=== PATIENT | male | born 1945 | race Caucasian/White ===

== ENCOUNTER → 2017-10-12 | Outpatient (CLI) | payer MEDICARE, OTHER | END | disposition home or self-care (01) | LOC: HKI 14:00 | DX: Z09 Encounter for follow-up examination after completed treatment for conditions other than malignant neoplasm (principal); Z96.642 Presence of left artificial hip joint | CPT/HCPCS: 73502 ==

== ENCOUNTER → 2017-10-20 | Outpatient (CLI) | payer MEDICARE, OTHER | END | disposition home or self-care (01) | LOC: HKI 14:19 | DX: Z47.1 Aftercare following joint replacement surgery (principal); Z96.642 Presence of left artificial hip joint ==

== ENCOUNTER → 2017-10-23 | Outpatient (CLI) | payer MEDICARE, OTHER | END | disposition home or self-care (01) | LOC: HKI 15:03 | DX: Z48.817 Encounter for surgical aftercare following surgery on the skin and subcutaneous tissue (principal) ==

== ENCOUNTER 2017-10-25 08:20 | Inpatient (IN) | payer MEDICARE, OTHER ==
[~2017-10-25 08:20] MED LIST: LIDOCAINE 100 MG SYRINGE
[2017-10-25 09:30] LABS: ADD MAN DIFF? NO
[2017-10-25 09:38] LABS: WHITE BLOOD COUNT 4.4 10^3/ul (4.8-10.8)
[2017-10-25 09:38] LABS: BASOPHILS % 0.9 % (0.0-2.0); EOSINOPHILS # 0.2 10^3/ul (0.0-0.5); EOSINOPHILS % 4.1 % (0.0-7.0); HEMATOCRIT 28.7 % (42.0-52.0); HOLD TRANSMISSIONS 1; LYMPHOCYTES % 22.2 % (15.0-51.0); MEAN CORPUSCULAR HEMOGLOBIN 26.8 pg (29.0-33.0); MEAN CORPUSCULAR HGB CONC 30.7 g/dl (32.0-37.0); MEAN CORPUSCULAR VOLUME 87.5 fl (82.0-101.0); MEAN PLATELET VOLUME 8.8 fl (7.4-10.4); MONOCYTE # 0.4 10^3/ul (0.3-0.9); MONOCYTES % 9.4 % (0.0-11.0); NEUTROPHIL # 2.8 10^3/ul (1.6-7.5); NEUTROPHILS % 63.2 % (39.0-77.0); PLATELET COUNT 467 10^3/UL (140-415); RED BLOOD COUNT 3.28 10^6/ul (4.70-6.10); RED CELL DISTRIBUTION WIDTH 16.6 % (11.5-14.5)
[2017-10-25 09:44] LABS: INR 1.09; PROTIME 14.2 Sec (11.9-14.9); PT RATIO 1.1
[2017-10-25 09:45] LABS: PARTIAL THROMBOPLASTIN TIME 34.3 Sec (25.0-35.0)
[2017-10-25] MEDS: oxyCODONE (CR) 10 MG TAB [oxyCONTIN] PO (09:53)
[2017-10-25] MEDS: ONDANSETRON 4 MG INJ IV (09:54)
[2017-10-25 09:55] LABS: ALANINE AMINOTRANSFERASE 33 IU/L (13-69); ALBUMIN 4.4 g/dl (3.3-4.9); ALBUMIN/GLOBULIN RATIO 1.37; ALKALINE PHOSPHATASE 113 IU/L (42-121); ANION GAP 19 (8-16); ASPARTATE AMINO TRANSFERASE 44 IU/L (15-46); BILIRUBIN,INDIRECT 0.3 mg/dl (0-1.1); BILIRUBIN,TOTAL 0.3 mg/dl (0.2-1.3); CARBON DIOXIDE 24 mmol/L (21-31); CHLORIDE 105 mmol/L (97-110); GLUCOSE 118 mg/dl (70-220); TOTAL PROTEIN 7.6 g/dl (6.1-8.1)
[2017-10-25 09:56] LABS: BLOOD UREA NITROGEN 11 mg/dl (7-20); CREATININE 0.93 mg/dl (0.61-1.24); POTASSIUM 4.6 mmol/L (3.5-5.1); SODIUM 143 mmol/L (135-144)
[2017-10-25] MEDS ORDERED: MIDAZOLAM 1 MG/ML 2 ML INJ (11:05)
[2017-10-25] MEDS ORDERED: FAMOTIDINE 20 MG INJ (11:21)
[2017-10-25] MEDS ORDERED: ONDANSETRON 4 MG INJ (11:21)
[2017-10-25] MEDS ORDERED: PROPOFOL 20 ML (11:21)
[2017-10-25] MEDS ORDERED: EPHEDrine SULFATE 50 MG/5 ML SYG (11:22)
[2017-10-25] MEDS ORDERED: MEPERIDINE 25 MG INJ IV (12:00)
[2017-10-25] MEDS ORDERED: PROCHLORPERAZINE 10 MG INJ IV (12:00)
[2017-10-25] MEDS ORDERED: OXYCODONE/ACETAMINOPHEN (5/325) TAB PO (12:00)
[2017-10-25] MEDS ORDERED: DIPHENHYDRAMINE 50 MG INJ IV (12:00)
[2017-10-25] MEDS ORDERED: FENTAnyl 50 MCG/ML VIAL IV (12:00)
[2017-10-25] MEDS ORDERED: hydrALAzine 20 MG INJ IV (12:00)
[2017-10-25] MEDS ORDERED: ONDANSETRON 4 MG INJ IV (12:00)
[2017-10-25] MEDS ORDERED: HYDROmorphONE (0.2 MG/ML) 10ML SYG IV (12:00)
[2017-10-25 12:14] LABS: ERYTHROCYTE SEDIMENTATION RATE 24 mm/Hr (0-20)
[2017-10-25 12:16] LABS: HEMOGLOBIN 8.8 g/dl (14.0-18.0)
[2017-10-25 12:23] LABS: C-REACTIVE PROTEIN < 0.5 mg/dl (0.0-0.9)
== END 2017-10-25 15:15 | disposition home or self-care (01) | DRG 561 ==
LOC: REC 08:20
PROC: 0S9B3ZZ Drainage of Left Hip Joint, Percutaneous Approach (ICD-10-PCS; principal; 2017-10-25 10:30)
DX: T84.52XA Infection and inflammatory reaction due to internal left hip prosthesis, initial encounter (principal); E11.9 Type 2 diabetes mellitus without complications; I10 Essential (primary) hypertension; Y79.3 Surgical instruments, materials and orthopedic devices (including sutures) associated with adverse incidents; I25.10 Atherosclerotic heart disease of native coronary artery without angina pectoris; E78.5 Hyperlipidemia, unspecified; Z95.1 Presence of aortocoronary bypass graft; Z95.0 Presence of cardiac pacemaker
CPT/HCPCS: 73530; 80053; 82962; 85025; 85610; 85651; 85730; 86140; 93005

== ENCOUNTER 2017-10-30 08:15 | Outpatient (CLI) | payer MEDICARE, OTHER | END 2017-10-31 | disposition home or self-care (01) | LOC: HKI 08:15 | DX: Z47.1 Aftercare following joint replacement surgery (principal); Z96.642 Presence of left artificial hip joint ==

== ENCOUNTER → 2017-12-29 | Outpatient (CLI) | payer MEDICARE, OTHER | END | disposition home or self-care (01) | LOC: HKI 10:28 | DX: Z47.1 Aftercare following joint replacement surgery (principal); Z96.642 Presence of left artificial hip joint | CPT/HCPCS: 73502 ==

== ENCOUNTER → 2018-05-03 | Outpatient (CLI) | payer MEDICARE, OTHER | END | disposition home or self-care (01) | LOC: HKI 14:12 | DX: Z09 Encounter for follow-up examination after completed treatment for conditions other than malignant neoplasm (principal); Z96.642 Presence of left artificial hip joint | CPT/HCPCS: 73502 ==

== ENCOUNTER → 2018-12-11 | Outpatient (CLI) | payer MEDICARE, OTHER | END | disposition home or self-care (01) | LOC: HKI 14:16 | DX: Z09 Encounter for follow-up examination after completed treatment for conditions other than malignant neoplasm (principal); Z96.642 Presence of left artificial hip joint | CPT/HCPCS: 73502 ==